=== PATIENT | male | born 1980 | race Hispanic/Latino ===

== ENCOUNTER 2017-04-23 14:57 | Emergency (ER) | payer OTHER ==
[2017-04-23 15:31] VITALS: BP 140/90
--- NOTE | 2017-04-23 16:33 | Emergency Department Report ---
Chief Complaint: GI Bleed Stated Complaint: BLOOD IN STOOL Time Seen by Provider: 04/23/17 16:11 - HPI History of Present Illness: Patient is a 36-year-old male complaining of watery loose bloody diarrhea. He denies fever since she was has noticed some evidence of some abdominal pain. - ROS Review of Systems: As noted in HPI - Exam Vital Signs: Vital Signs 04/23/17 15:27 Temperature 97.8 F Pulse Rate 98 H Respiratory 20 Rate Blood Pressure 140/90 O2 Sat by Pulse 98 Oximetry Physical Exam: GENERAL: Alert and oriented x3, no apparent distress, Normal Gait, atraumatic. HEAD: Head is normocephalic and a-traumatic. ABDOMEN: No organomegaly was noted,Positive bowel sounds, soft, and non- distended. Nontender to palpation on all Quadrants, NO CVA tenderness. MSE screening note: Focused history and physical exam performed. Due to findings the following was ordered: ED Medical Decision Making - Medical Decision Making Labs ordered. Patient to be seen by ED physician. ED Disposition for MSE Condition: Stable Referrals: LEONEL MORIN MD [Primary Care Provider] - 3-5 Days
[2017-04-23 16:53] LABS: Basophils % (Auto) 0.9 % (0.0-1.8); Eosinophils % (Auto) 2.6 % (0.0-4.3); Hemoglobin 14.4 gm/dl (11.8-15.2); Mean Corpuscular HGB Conc 33 % (32-34); Mean Corpuscular Hemoglobin 35 pg (28-32); Mean Corpuscular Volume 105 fl (84-94); Platelet Count 238 K/mm3 (140-440); White Blood Count 4.8 K/mm3 (4.5-11.0)
[2017-04-23 17:03] LABS: INR 0.96 (0.87-1.13); Partial Thromboplastin Time 29.3 Sec. (24.2-36.6)
[2017-04-23 17:13] LABS: Alanine Aminotransferase 37 units/L (7-56); Albumin 4.2 g/dL (3.9-5); Albumin/Globulin Ratio 1.5 %; Alkaline Phosphatase 115 units/L (35-129); Anion Gap 18 mmol/L; BUN/Creatinine Ratio 8; Blood Urea Nitrogen 5 mg/dL (9-20); Calcium 8.3 mg/dL (8.4-10.2); Carbon Dioxide 28 mmol/L (22-30); Glucose 133 mg/dL (75-100); Lipase 32 units/L (13-60); Potassium 3.9 mmol/L (3.6-5.0); Sodium 143 mmol/L (137-145)
== END 2017-04-24 05:45 | disposition other institution (70) ==
LOC: ED 14:57
DX: Z53.21 Procedure and treatment not carried out due to patient leaving prior to being seen by health care provider (principal)
CPT/HCPCS: 36415; 80053; 83690; 85025; 85610; 85730; 86850; 86900; 86901; 93005; 93010

== ENCOUNTER 2020-04-08 22:44 | Emergency (ER) | payer OTHER ==
[2020-04-09 01:48] VITALS: BP 127/88
--- NOTE | 2020-04-09 02:46 | XRay Report ---
LUMBAR SPINE HISTORY: Back pain COMPARISON: None. TECHNIQUE: 2 view(s) of the lumbar spine obtained. FINDINGS: Vertebrae: Normal alignment. No displaced fracture or significant abnormality. Disc Spaces:No significant abnormality. Facet Joints:No significant abnormality. Additional findings: None. IMPRESSION: 1. No significant abnormality of the lumbar spine. Signer Name: Soha Diaz MD Signed: 04/09/2020 2:42 AM Workstation Name: [id number]
--- NOTE | 2020-04-09 02:47 | XRay Report ---
LEFT FOREARM RADIOGRAPH, ONE VIEW INDICATION / CLINICAL INFORMATION: left forearm pain COMPARISON: None available. FINDINGS: BONES / JOINT(S): No acute displaced fracture or subluxation. No significant arthritis. SOFT TISSUES: No significant abnormality. ADDITIONAL FINDINGS: None. Signer Name: Soha Diaz MD Signed: 04/09/2020 2:43 AM Workstation Name: [id number]
--- NOTE | 2020-04-09 02:50 | XRay Report ---
LEFT RIBS, PA CHEST RADIOGRAPH HISTORY: Left rib pain COMPARISON: None. TECHNIQUE: 4 views of the left ribs were obtained. Single view of the chest also obtained. FINDINGS: Left Ribs: Bones: No displaced fracture. Chest: Cardiomediastinal silhouette: Within normal limits. Lungs: The lungs are clear. No pleural effusions. No pneumothorax. Additional findings: None. IMPRESSION: 1. No significant abnormality. Signer Name: Soha Diaz MD Signed: 04/09/2020 2:46 AM Workstation Name: [id number]
--- NOTE | 2020-04-09 02:52 | XRay Report ---
CERVICAL SPINE HISTORY: Neck pain COMPARISON: None. TECHNIQUE: 3 view(s) of the cervical spine obtained. FINDINGS: Vertebrae: Normal alignment. No displaced fracture or significant abnormality. Disc Spaces:Mild degenerative disc disease at C6-7. Facet Joints:No significant abnormality. Prevertebral Soft Tissues:No significant abnormality. Additional findings: None. IMPRESSION: 1. Mild degenerative disc disease at C6-7. Otherwise no significant abnormality. Signer Name: Soha Diaz MD Signed: 04/09/2020 2:48 AM Workstation Name: [id number]
[2020-04-09] MEDS ORDERED: IBUPROFEN 600 MG TAB PO ONE (03:42)
[2020-04-09] MEDS ORDERED: ACETAMINOPHEN 500 MG TAB PO ONE (03:42)
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
== END 2020-04-09 04:35 | disposition home or self-care (01) ==
LOC: ED 22:44
DX: S46.912A Strain of unspecified muscle, fascia and tendon at shoulder and upper arm level, left arm, initial encounter (principal); S20.212A Contusion of left front wall of thorax, initial encounter; M62.830 Muscle spasm of back; Z98.890 Other specified postprocedural states; Z79.1 Long term (current) use of non-steroidal anti-inflammatories (NSAID); Z79.899 Other long term (current) drug therapy; V49.49XA Driver injured in collision with other motor vehicles in traffic accident, initial encounter; W22.10XA Striking against or struck by unspecified automobile airbag, initial encounter; Y93.89 Activity, other specified; Y92.410 Unspecified street and highway as the place of occurrence of the external cause; Y99.8 Other external cause status
CPT/HCPCS: 72040; 72100